=== PATIENT | female | born 1980 | race Caucasian/White ===

== ENCOUNTER 2017-09-02 21:52 | Emergency (ER) | payer BC ==
[2017-09-02 22:04] VITALS: BP 123/74
[2017-09-02] MEDS ORDERED: Sodium Chloride 0.9% 1,000 ML IV SCH (22:45)
[2017-09-02] MEDS ORDERED: HYDROmorphone 0.5 MG/0.5 ML Syringe IVPUSH ONE (22:45)
--- NOTE | 2017-09-02 22:45 | EDM.PDOC ---
ED HPI GENERAL MEDICAL PROBLEM - General Chief Complaint: Abdominal Pain Stated Complaint: RIGHT SIDE PAIN Time Seen by Provider: 09/02/17 22:34 Source of Information: Reports: Patient History Limitations: Reports: No Limitations - History of Present Illness INITIAL COMMENTS - FREE TEXT/NARRATIVE: 36-year-old female presents to the ED with gradually worsening right lower quadrant abdominal pain rating up into her right flank for the last 3 and half days. Temperature of 101.4 developed last night with associated chills. Still has an appetite however. She went to the clinic this afternoon and was identified to have a suspect urinary tract infection with 30 red blood cells prior per field and 20-40 WBCs per per field and no bacteria noted however. She was started on Keflex 500 mg by mouth. She has taken one tablet. She reports she thinks she was having some mild dysuria and urgency. However the pain is getting much worse. She has signs and symptoms of peritonitis with pain with laughing or coughing and also the riding in the car with every bump hurt her and her right lower quadrant. No previous abdominal surgeries. She states no bowel movement for the last 3 days either which is atypical for her. Anus is been in the right lower quadrant rating to the right flank and is gradually worsened over the last 2 days. Onset: Gradual (Over the last 3 days.) Onset Date: 08/30/17 Duration: Day(s): Location: Reports: Abdomen (Right lower quadrant abdomen radiating to the right lower back.) Quality: Reports: Ache, Pressure Severity: Moderate (Rates her pain as 8 out of 10) Improves with: Reports: None Worsens with: Reports: Other (Riding in a motor vehicle with every bump in the road awareness. Coughing or laughing hurts as well.), Movement Context: Denies: Activity, Exercise, Lifting, Sick Contact, Trauma, Other Associated Symptoms: Reports: Nausea/Vomiting. 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 (see below) (None.) Right Abdominal Pain Score (Numeric/FACES): 7 - Related Data Allergies Allergy/AdvReac Type Severity Reaction Status Date / Time amoxicillin trihydrate Allergy Hives Verified 09/02/17 22:03 [From Augmentin] potassium clavulanate Allergy Hives Verified 09/02/17 22:03 [From Augmentin] Home Meds: Home Meds Cephalexin [Keflex] 1 cap PO BID 09/02/17 [History] Past Medical History - Past Health History Medical/Surgical History: Denies Medical/Surgical History HEENT History: Reports: Sinusitis Cardiovascular History: Reports: Heart Murmur Genitourinary History: Reports: UTI, Recurrent 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 OB/BYN History: Ovarian cysts Musculoskeletal History: Reports: Fracture Psychiatric History: Reports: Depression Other Psychiatric History: Post Hematologic History: Reports: Anemia, Iron Deficiency Dermatologic History: Reports: Eczema - Infectious Disease History Infectious Disease History: Reports: Chicken Pox - Past Surgical History HEENT Surgical History: Reports: Adenoidectomy Female Surgical History: Reports: Breast Biopsy Social & Family History - Family History Family Medical History: Noncontributory - Tobacco Use Smoking Status *Q: Never Smoker Second Hand Smoke Exposure: No - Alcohol Use Days Per Week of Alcohol Use: 0 - Recreational Drug Use Recreational Drug Use: No - Living Situation & Occupation Living situation: Reports: , with Family ED ROS GENERAL - Review of Systems Review Of Systems: See Below Constitutional: Reports: Fever, Chills (101.4 last night), Malaise, Weakness, Fatigue, Decreased Appetite. Denies: Night Sweats, Weight Loss, Weight Gain HEENT: Reports: No Symptoms Respiratory: Reports: No Symptoms Cardiovascular: Reports: No Symptoms Endocrine: Reports: No Symptoms GI/Abdominal: Reports: Abdominal Pain (See history of present illness), Constipation (No bowel movement 3 days. This is atypical for her.), Nausea : Reports: Dysuria (Mild dysuria at times.), Frequency Musculoskeletal: Reports: Back Pain Skin: Reports: No Symptoms (Right flank pain) Neurological: Reports: No Symptoms Psychiatric: Reports: No Symptoms Hematologic/Lymphatic: Reports: No Symptoms Immunologic: Reports: No Symptoms ED EXAM, GI/ABD - Physical Exam Exam: See Below Exam Limited By: No Limitations General Appearance: Alert, WD/WN, Mild Distress Eyes: Bilateral: Normal Appearance (No jaundice.) Throat/Mouth: Normal Inspection, Normal Lips, Normal Oropharynx Head: Atraumatic, Normocephalic Neck: Normal Inspection, Supple, Non-Tender, Full Range of Motion Respiratory/Chest: No Respiratory Distress, Lungs Clear, Normal Breath Sounds, No Accessory Muscle Use Cardiovascular: Normal Peripheral Pulses, Regular Rate, Rhythm, No Edema, No Gallop, No Murmur GI/Abdominal Exam: Normal Bowel Sounds, Soft, Guarding ( guarding), Tender ( Right lower quadrant at McBurney's point). No: Rigid, Rebound, Hepatomegaly, Splenomegaly Back Exam: CVA Tenderness (R). No: CVA Tenderness (L) (Mild on the right side) , Decreased Range of Motion Extremities: Normal Inspection, Normal Range of Motion, Non-Tender, No Pedal Edema, Normal Capillary Refill Neurological: Alert, Oriented, CN II-XII Intact, Normal Cognition, Normal Gait Psychiatric: Normal Affect, Normal Mood Skin Exam: Warm, Dry, Intact, Normal Color, No Rash Course - Vital Signs Last Recorded V/S: Last Vital Signs Temp 36.7 C 09/02/17 22:00 Pulse 87 09/02/17 22:00 Resp 16 09/02/17 22:00 BP 123/74 09/02/17 22:00 Pulse Ox 97 09/02/17 22:00 - Orders/Labs/Meds Orders: Active Orders 24 hr Category Date Time Status Abdomen Pelvis wo Cont [CT] Stat Exams 09/02/17 22:47 Taken Sodium Chloride 0.9% [Normal Saline] 1,000 ml Med 09/02/17 22:45 Active IV ASDIRECTED Medication Orders Sodium Chloride (Normal Saline) 1,000 mls @ 125 mls/hr IV ASDIRECTED SHAHZAD Last Admin: 09/02/17 23:15 Dose: 125 mls/hr Labs: Laboratory Tests 09/02/17 09/02/17 09/02/17 Range/Units 23:05 23:05 23:05 WBC 9.54 (3.98-10.04) K/mm3 RBC 4.79 (3.98-5.22) M/mm3 Hgb 13.3 (11.2-15.7) gm/L Hct 41.5 (34.1-44.9) % MCV 86.6 (79.4-94.8) fl MCH 27.8 (25.6-32.2) pg MCHC 32.0 L (32.2-35.5) g/dl RDW Std Deviation 43.3 (36.4-46.3) fL Plt Count 231 (182-369) K/mm3 MPV 11.2 (9.4-12.3) fl Neutrophils % (Manual) 64 H (40-60) % Band Neutrophils % 0 (0-10) % Lymphocytes % (Manual) 36 (20-40) % Atypical Lymphs % 0 % Immat Monocytes % (Man) 0 Monocytes % (Manual) 0 L (2-10) % Eosinophils % (Manual) 0 L (0.7-5.8) % Basophils % (Manual) 0 L (0.1-1.2) Metamyelocytes % 0 Myelocytes % 0 Promyelocytes % 0 Blast Cells % 0 Plasma Cell % (Manual) 0 Nucleated RBCs 0.0 % Platelet Estimate Adequate RBC Morph Comment Normal Sodium 141 (136-145) mEq/L Potassium 4.0 (3.5-5.1) mEq/L Chloride 106 (98-107) mEq/L Carbon Dioxide 26 (21-32) mEq/L Anion Gap 13.0 (5-15) BUN 20 H (7-18) mg/dL Creatinine 0.8 (0.55-1.02) mg/dL Est Cr Clr Drug Dosing 88.32 mL/min Estimated GFR (MDRD) > 60 (>60) mL/min BUN/Creatinine Ratio 25.0 H (14-18) Glucose 111 H (74-106) mg/dL Calcium 8.7 (8.5-10.1) mg/dL Total Bilirubin 0.2 (0.2-1.0) mg/dL AST 15 (15-37) U/L ALT 20 (14-59) U/L Alkaline Phosphatase 84 (46-116) U/L C-Reactive Protein 2.8 H* (<1.0) mg/dL Total Protein 7.5 (6.4-8.2) g/dl Albumin 3.6 (3.4-5.0) g/dl Globulin 3.9 gm/dL Albumin/Globulin Ratio 0.9 L (1-2) HCG, Qual Negative (NEGATIVE) Urine Color (Yellow) Urine Appearance (Clear) Urine pH (5.0-8.0) Ur Specific [place] (1.005-1.030) Urine Protein (Negative) Urine Glucose (UA) (Negative) Urine Ketones (Negative) Urine Occult Blood (Negative) Urine Nitrite (Negative) Urine Bilirubin (Negative) Urine Urobilinogen (0.2-1.0) Ur Leukocyte Esterase (Negative) Urine RBC (0-5) /hpf Urine WBC (0-5) /hpf Ur Epithelial Cells (0-5) /hpf Urine Bacteria (FEW) /hpf Urine Mucus (FEW) /hpf 09/02/17 Range/Units 23:14 WBC (3.98-10.04) K/mm3 RBC (3.98-5.22) M/mm3 Hgb (11.2-15.7) gm/L Hct (34.1-44.9) % MCV (79.4-94.8) fl MCH (25.6-32.2) pg MCHC (32.2-35.5) g/dl RDW Std Deviation (36.4-46.3) fL Plt Count (182-369) K/mm3 MPV (9.4-12.3) fl Neutrophils % (Manual) (40-60) % Band Neutrophils % (0-10) % Lymphocytes % (Manual) (20-40) % Atypical Lymphs % % Immat Monocytes % (Man) Monocytes % (Manual) (2-10) % Eosinophils % (Manual) (0.7-5.8) % Basophils % (Manual) (0.1-1.2) Metamyelocytes % Myelocytes % Promyelocytes % Blast Cells % Plasma Cell % (Manual) Nucleated RBCs % Platelet Estimate RBC Morph Comment Sodium (136-145) mEq/L Potassium (3.5-5.1) mEq/L Chloride (98-107) mEq/L Carbon Dioxide (21-32) mEq/L Anion Gap (5-15) BUN (7-18) mg/dL Creatinine (0.55-1.02) mg/dL Est Cr Clr Drug Dosing mL/min Estimated GFR (MDRD) (>60) mL/min BUN/Creatinine Ratio (14-18) Glucose (74-106) mg/dL Calcium (8.5-10.1) mg/dL Total Bilirubin (0.2-1.0) mg/dL AST (15-37) U/L ALT (14-59) U/L Alkaline Phosphatase (46-116) U/L C-Reactive Protein (<1.0) mg/dL Total Protein (6.4-8.2) g/dl Albumin (3.4-5.0) g/dl Globulin gm/dL Albumin/Globulin Ratio (1-2) HCG, Qual (NEGATIVE) Urine Color Yellow (Yellow) Urine Appearance Clear (Clear) Urine pH 7.0 (5.0-8.0) Ur Specific [place] 1.020 (1.005-1.030) Urine Protein 1+ H (Negative) Urine Glucose (UA) Negative (Negative) Urine Ketones Negative (Negative) Urine Occult Blood 2+ H (Negative) Urine Nitrite Negative (Negative) Urine Bilirubin Negative (Negative) Urine Urobilinogen 0.2 (0.2-1.0) Ur Leukocyte Esterase 1+ H (Negative) Urine RBC 10-20 H (0-5) /hpf Urine WBC 5-10 H (0-5) /hpf Ur Epithelial Cells 0-5 (0-5) /hpf Urine Bacteria Few (FEW) /hpf Urine Mucus Not seen (FEW) /hpf Meds: Medications Generic Name Dose Route Start Last Admin Trade Name Dominga PRN Reason Stop Dose Admin Sodium Chloride 1,000 mls @ 125 mls/hr 09/02/17 22:45 09/02/17 23:15 Normal Saline IV 125 mls/hr ASDIRECTED SHAHZAD Administration Discontinued Medications Generic Name Dose Route Start Last Admin Trade Name Dominga PRN Reason Stop Dose Admin Hydromorphone HCl 0.5 mg 09/02/17 22:45 09/02/17 23:16 Dilaudid IVPUSH 09/02/17 22:46 0.5 mg ONETIME ONE Administration Ceftriaxone Sodium 1 gm/ 100 mls @ 200 mls/hr 09/03/17 00:04 09/03/17 00:14 Sodium Chloride IV 09/03/17 00:33 200 mls/hr ONETIME ONE Administration Magnesium Citrate 210 ml 09/03/17 00:05 09/03/17 00:14 Citrate Of Magnesia PO 09/03/17 00:06 210 ml ONETIME ONE Administration Metoclopramide HCl 10 mg 09/02/17 22:46 09/02/17 23:15 Reglan IVPUSH 09/02/17 22:47 10 mg ONETIME ONE Administration - Radiology Interpretation Free Text/Narrative:: 36-year-old female presents the ED with gradually worsening right lower quadrant abdominal pain for the last 3-1/2 days. Was seen in the clinic earlier today and diagnosed with a suspect urinary tract infection started on cephalexin 500 mg 3 times a day for UTI. Urinalysis showed up to 30 red blood cells per hpf and 40 WBCs per high-power field but no bacteria and no nitrates. This is suspicious for possible other cause of cells in the urine. Patient states it hurts to walk. She has had no previous abdominal surgeries. No history of kidney stones. She is localizing to right lower quadrant of the abdomen at McBurney's point with tenderness and guarding but no rebound tenderness. Therefore CT of the abdomen will be done without contrast initially to rule out a stone. If nothing is found will order CT with contrast. Routine labs including a CRP are also ordered and a beta hCG although she states that there is no chance for as her has had a vasectomy and she's not sexually active with a anybody else. - Re-Assessments/Exams Free Text/Narrative Re-Assessment/Exam: 09/02/17 23:47 CT of the abdomen and pelvis has been performed. The liver is normal in architecture with no suspicious abnormalities gallbladder is contracted with no stones. Pancreas appears normal. Spleen normal adrenals normal there is mild bilateral hydroureteronephrosis. No stones identified there are no dilated or thickened small bowel loops is a large amount of gas and abundant stool throughout the colon. No findings to suggest acute appendicitis. Intra-abdominal intraperitoneal space is normal as well. Therefore I suspect it hurts her bowel that is may be causing her right lower quadrant pain it doesn't explain the large amount of red cells in the urine unless she she passed a stone recently. 09/02/17 23:50 Labs reveal a white count of 9.54 with certain 36% lymphocytes and 64% neutrophils. Hemoglobin is 13.3 with hematocrit of 41.5 was 231,000. Sodium is 141 potassium 4.0 chloride 106 bicarbonate 26. Anion gap is 13.0 BUNs 20 creatinine 0.8. Glucose 111 CRP is mildly elevated at 2.8. HCG is negative. Urinalysis now shows 2+ occult blood 1+ leukocyte esterase 10-20 RBCs and 5-10 WBCs per high-power field. Again only a few bacteria are mentioned. 09/03/17 00:05 pain is much improved after the IV medication. I'm going to give her Rocephin 1 g IV as I suspect she scheduled ureter or ureteritis and her pain is mimicking that of renal colic. This with the infection should start to improve very rapidly. Secondly I will plan on giving her Citroma 7 ounces by mouth with 5 ounces of juice to take tomorrow morning when she gets home to provide bowel cleanse. 09/03/17 01:03 she has completed her IV Rocephin and is feeling improved. She' ll be discharged to home. She'll complete her cephalexin 500 mg 3 times a day as previously prescribed for urinary tract infection Departure - Departure Time of Disposition: 00:53 Disposition: Home, Self-Care 01 Condition: Fair Clinical Impression: Upper urinary tract infection, Constipation by delayed colonic transit - Discharge Information Instructions: Constipation, Adult, Urinary Tract Infection, Adult Referrals: PCP,None [Primary Care Provider] - Forms: ED Department Discharge, ED Return to Work/School Form Additional Instructions: Evaluation the emergency room tonight in regards to gradually worsening right lower quadrant abdominal pain over the last 3-1/2 days. Diagnosed earlier today in the clinic with a urinary tract infection with plenty of red cells and white blood cells but very few bacteria appreciated. Concern for possible appendicitis or kidney stone were identified on today's examination. CT of the abdomen was therefore carried out did not reveal any signs of Stones in the ureters or kidne or bladder. It did identify a large amount of stool throughout the right hemicolon down in the right pelvis. No signs of appendicitis were identified. Also this correlated with her lab work showing no signs of a elevated white count to suggest kidney infection. The urinalysis done here shows a fair amount of red cells as well as pus cells compatible with a urinary tract infection. I suspect infection is travel up into the ureter on the right side and is mimicking renal colic or kidney stone. However the bowel could also be part of the problem. I'm therefore going to give you antibiotic in the emergency room IV Rocephin 1 g to start working on the urinary tract infection very quickly as the tablets will take a day and half to work. Once her to continue to use the cephalexin 500 mg 3 times daily as previously prescribed tomorrow morning take Citroma 7 ounces mixed with 5 ounces of juice of choice or Gatorade Powerade. This usually takes 1-2 hours to start to work in the bowels will usually work 3 or 4 times often ending in some degree of diarrhea. Obviously you need to stay home from work tomorrow and in no will be provided in this regard. Expect improvement over the next 12-24 hours from the urinary tract infection point of view and of course immediate relief if the constipation was part of the problem. - My Orders Last 24 Hours: My Active Orders 09/02/17 22:45 Sodium Chloride 0.9% [Normal Saline] 1,000 ml IV ASDIRECTED 09/02/17 22:47 Abdomen Pelvis wo Cont [CT] Stat - Assessment/Plan Last 24 Hours: My Active Orders 09/02/17 22:45 Sodium Chloride 0.9% [Normal Saline] 1,000 ml IV ASDIRECTED 09/02/17 22:47 Abdomen Pelvis wo Cont [CT] Stat
[2017-09-02] MEDS ORDERED: Metoclopramide 10 MG/2 ML SDV IVPUSH ONE (22:46)
[2017-09-03] MEDS ORDERED: cefTRIAXone 1 GM in Sodium Chloride 0.9% 100 ML IV ONE (00:04)
[2017-09-03] MEDS ORDERED: Magnesium Citrate Solution 296 ML Bottle PO ONE (00:05)
--- NOTE | 2017-09-03 07:46 | CT ---
CT abdomen and pelvis Technique: Multiple axial sections were obtained from above the dome of the diaphragm inferiorly through the pubic symphysis. Intravenous and oral contrast not utilized. Study has been performed as a ureteral stone protocol. Comparison: No prior CT exam. Findings: Right ureter is mildly prominent down to the bladder. No abnormal calcifications are seen along the course of the ureters or are seen within the bladder. Findings most likely represent a ureteral stone that has passed. Please correlate if patient symptoms are improving. Kidneys show no abnormal calcifications. Visualized lung bases show nothing acute. Noncontrast appearance of the liver and spleen appear within normal limits. Adrenal glands show no nodule. Visualized pancreas appears within normal limits. Gallbladder is collapsed without calcified gallstones. Aorta shows no aneurysmal dilatation. No retroperitoneal adenopathy or mesenteric abnormalities are seen. No pelvic mass or adenopathy is seen. Mild increased stool is noted within the colon. Appendix is seen which is normal. Bone window settings were reviewed which appear within normal limits for the patient's age. Impression: 1. Mildly prominent right ureter down to the bladder without obstructing stone being seen. Findings raise the possibility of a recently passed right ureteral stone and please correlate if patient symptoms are improving. 2. Other incidental findings as noted above. Diagnostic code #3 Agree with preliminary report issued by [facility] ([facility] preliminary report dictated on 09/03/17, 12:10 AM Central Time Central Time)
== END 2017-09-03 01:02 | disposition home or self-care (01) ==
LOC: JD.ED 21:52
DX: N39.0 Urinary tract infection, site not specified (principal); K59.01 Slow transit constipation; Z86.2 Personal history of diseases of the blood and blood-forming organs and certain disorders involving the immune mechanism; Z88.1 Allergy status to other antibiotic agents
CPT/HCPCS: 36415; 74176; 80053; 81001; 84703; 85025; 86140; 96361; 96365; 96375; 99284; A9270; J0696; J1170; J2765; J7030; J7040; 99283

== ENCOUNTER 2019-11-25 18:40 | Emergency (ER) | payer BC, MEDICAID ==
--- NOTE | 2019-11-25 20:43 | EDM.PDOC ---
ED HPI GENERAL MEDICAL PROBLEM - General Chief Complaint: Headache Stated Complaint: FEVER/SINUS INFECTION Time Seen by Provider: 11/25/19 19:24 Source of Information: Reports: Patient, RN Notes Reviewed - History of Present Illness INITIAL COMMENTS - FREE TEXT/NARRATIVE: 31-year-old female first became ill about 8-10 days ago with cough congestion sore throat. She was getting better and then a day or 2 ago she became much more ill severe cough, fever, chills, headache, achiness, sinus pressure and drainage. Eating at one of the clinics yesterday, prescribed some doxycycline for sinusitis. She continues to feel very rotten today with all of the above symptoms. She did not get a flu shot this year. 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 Musculoskeletal History: Reports: Fracture Psychiatric History: Reports: Depression Other Psychiatric History: Post Hematologic History: Reports: Anemia, Iron Deficiency Dermatologic History: Reports: Eczema - Infectious Disease History Infectious Disease History: Reports: Chicken Pox - Past Surgical History HEENT Surgical History: Reports: Adenoidectomy Female Surgical History: Reports: Breast Biopsy Social & Family History - Family History Family Medical History: Noncontributory - Tobacco Use Smoking Status *Q: Never Smoker - Caffeine Use Caffeine Use: Reports: Coffee - Recreational Drug Use Recreational Drug Use: No - Living Situation & Occupation Living situation: Reports: , with Family ED ROS GENERAL - Review of Systems Review Of Systems: See Below Constitutional: Reports: Fever, Chills. Denies: Diaphoresis HEENT: Reports: Rhinitis, Sinus Problem. Denies: Throat Pain Respiratory: Reports: Cough, Sputum. Denies: Shortness of Breath Cardiovascular: Reports: Chest Pain Endocrine: Reports: Fatigue (With coughing) GI/Abdominal: Reports: Nausea, Vomiting (With coughing and gagging). Denies: Abdominal Pain Musculoskeletal: Reports: Other Skin: Reports: No Symptoms (Generalized achiness) Neurological: Reports: Dizziness, Headache ED EXAM, NEURO - Physical Exam Exam: See Below General Appearance: Alert, Moderate Distress Eye Exam: Bilateral Eye: PERRL Nose: Nasal Drainage, Clear Rhinorrhea Throat/Mouth: Normal Inspection, Normal Oropharynx Head Exam: Atraumatic Neck: Supple Respiratory/Chest: No Respiratory Distress, Lungs Clear, Normal Breath Sounds. No: Rhonchi, Wheezing Cardiovascular: Regular Rate, Rhythm GI/Abdominal: Soft, Non-Tender Neurological: Alert, No Motor/Sensory Deficits Extremities: Normal Inspection, Normal Range of Motion Skin Exam: Warm, Dry, Normal Color, No Rash Course - Vital Signs Last Recorded V/S: Last Vital Signs Temp 99.3 F 11/25/19 18:55 Pulse 86 11/25/19 18:55 Resp 18 11/25/19 18:55 BP 113/80 11/25/19 18:55 Pulse Ox 97 11/25/19 18:55 - Orders/Labs/Meds Orders: Active Orders 24 hr Category Date Time Status Chest 1V Frontal [CR] Stat Exams 11/25/19 19:37 Taken - Re-Assessments/Exams Free Text/Narrative Re-Assessment/Exam: 11/25/19 20:40 Chest x-ray normal, and influenza screen positive for influenza B Departure - Departure Time of Disposition: 20:40 Disposition: Home, Self-Care 01 Condition: Fair Clinical Impression: Influenza - Discharge Information Instructions: Influenza, Adult, [id number] Referrals: PCP,None [Primary Care Provider] - Forms: ED Department Discharge Additional Instructions: Rest, vaporizer steam as needed, Tylenol for mild to moderate discomfort or Hyrdrocodone if needed for more severe discomfort. You can actually take one 500 mg Tylenol with each hydrocodone but don't take more than 4 hydrocodone per 24 hours or more than four 500 mg Tylenol per 24 hours. Decongestant as needed. You will feel much better within 2-3 days as discussed. Follow up clinic if not much better by Saturday. Return to ED as needed. Sepsis Event Note - Evaluation Sepsis Screening Result: No Definite Risk - Focused Exam Vital Signs: Vital Signs Temp Pulse Resp BP Pulse Ox 11/25/19 18:55 99.3 F 86 18 113/80 97 Date Exam was Performed: 11/25/19 Time Exam was Performed: 20:47 - My Orders Last 24 Hours: My Active Orders 11/25/19 19:37 Chest 1V Frontal [CR] Stat - Assessment/Plan Last 24 Hours: My Active Orders 11/25/19 19:37 Chest 1V Frontal [CR] Stat
[2019-11-25 21:02] VITALS: BP 115/75; PULSE 83
--- NOTE | 2019-11-26 07:15 | CR ---
Chest: Portable view of the chest was obtained. Comparison: No prior chest imaging is available. Heart size and mediastinum are normal. Lungs are clear. Bony structures are grossly intact. Impression: 1. Nothing acute is appreciated on portable chest x-ray. Diagnostic code #1 This report was dictated in [place] Standard Time
== END 2019-11-25 20:58 | disposition home or self-care (01) ==
LOC: JD.ED 18:40
DX: J10.1 Influenza due to other identified influenza virus with other respiratory manifestations (principal); Z88.0 Allergy status to penicillin
CPT/HCPCS: 71045; 71045-26; 87804; 99283-25

== ENCOUNTER 2024-08-31 01:45 | Emergency (ER) | payer BC, MEDICAID ==
[2024-08-31 01:56] VITALS: BP 112/65; PULSE 56
[2024-08-31] MEDS: Acetaminophen 325 MG Tab PO ONE (02:34)
[2024-08-31] MEDS: Cyclobenzaprine 10 MG Tab PO ONE (02:34)
== END 2024-08-31 03:30 | disposition home or self-care (01) ==
LOC: JD.ED 01:45
DX: S01.21XA Laceration without foreign body of nose, initial encounter (principal); S76.311A Strain of muscle, fascia and tendon of the posterior muscle group at thigh level, right thigh, initial encounter; Z79.899 Other long term (current) drug therapy; Z88.1 Allergy status to other antibiotic agents; W19.XXXA Unspecified fall, initial encounter
CPT/HCPCS: 12011; 99283; A9270; 99282